=== PATIENT | male | born 1985 | race African-American/Black ===

== ENCOUNTER 2021-05-04 10:43 | Emergency (ER) | payer SELFPAY ==
[~2021-05-04] VITALS: Ht 185.4 cm; Wt 86.4 kg
[~2021-05-04 10:43] MED LIST: HYDR-3965 PO; IBUP-1689 PO
[2021-05-04 10:44] VITALS: BP 132/94
[2021-05-04 11:39] LABS: COVID AG,FIA SOURCE NASOPHARYNGEAL
== END 2021-05-04 13:52 | disposition home or self-care (01) ==
LOC: EMS 10:43
DX: U07.1 COVID-19 (principal); J02.9 Acute pharyngitis, unspecified; R05 Cough; F17.210 Nicotine dependence, cigarettes, uncomplicated
CPT/HCPCS: 87426; 99283; U0003